=== PATIENT | female | born 1970 | race Two or more races ===

== ENCOUNTER 2024-02-22 11:49 | Outpatient (AMB) | payer OTHER, SELFPAY ==
--- NOTE | 2024-02-22 12:33 | MHC.OFFVIS ---
Vital Signs 02/22/24 12:34 Height 5 ft 2 in Weight 147 lb 4.301 oz BMI 26.9 BP 120/60 Blood Pressure Location Rt brachial Position Sitting Pulse 64 Pulse Oximetry (%) 98 Intake Visit Reasons: Polyarthralgia/? FM Intake Note: New patient, referred by [facility], presents today for evaluation of polyarthralgia. c/o generalized joint pain that began in Oct, 2023. Currently on Gabapentin 300 mg BID, unable to tolerate TID. 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 Castañeda 53 yoF here for evaluation of total body pain. The total body pain started 2 or 3 years ago with gradual onset and had worsening pain for a few months now. This caused her to called out from work frequently. --denies morning stiffness more than 5 minutes. --pain is stronger to upper back, neck --ibuprofen, Tylenol not help; got gabapentin which helped after a few weeks - titrated up to 300mg BID per day; but causes her to feel bloated. 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 --denies joint swelling, redness, or warm --denies generalized weakness to muscles --denies dry eyes, mouth, mouth sores, sun sensitivity --no pleuritis, pericarditis, uveiitis, sun sensitivity, --no headaches, eye pain -.tender points - trapezius, buttocks, trochanteric, lumbar --Neg, NICOLÁS, Lyme, UA, RF, ESR, CRP PFSH Medical History (Updated 02/22/24 @ 13:27 by EH Deluca-RACHEL) Swelling of left elbow joint Pain in joint involving multiple sites Myalgia Acute arthritis CAD (coronary artery disease) Hyperlipidemia, unspecified Vitamin D deficiency Major depressive disorder with single episode Anxiety HTN (hypertension) Stable angina Renal cyst, left Overweight Surgical History (Updated 02/15/24 @ 15:28 by PRITSEH Reyes) Hx of tubal ligation Hx of cholecystectomy Hx of section History of appendectomy Family History (Updated 02/22/24 @ 12:38 by PRITESH Reyes) Mother Arthritis Social History (Updated 02/22/24 @ 12:38 by PRITESH Reyes) Alcohol intake: current Alcohol intake frequency: holidays/special occasions only Patient Tobacco Use Status: Never used Tobacco Current occupational status: employed Current occupation: cleaning Review of Systems Const All systems reviewed & are unremarkable except as noted in HPI and below Physical Exam Vital Signs: Last Vital Signs Pulse 64 02/22/24 12:34 BP 120/60 02/22/24 12:34 Pulse Ox 98 02/22/24 12:34 BMI result Body Mass Index 26.9 Vital signs reviewed. Constitutional: Non-toxic appearing. No acute distress. Well-developed and well-nourished. HEENT: Normocephalic and atraumatic. External auditory canals without erythema or edema bilaterally. Dry mucous membranes. No pharyngeal erythema or exudates. Skin: Warm and dry. No rashes or lesions noted. Neck: Full and painless range of motion. No cervical lymphadenopathy. Cardio: Regular rate and rhythm. No murmurs, gallops, or rubs. No lower extremity edema. No JVD. Pulmonary: No respiratory distress. No accessory muscle usage. Gastrointestinal: Soft, nontender, and nondistended in all 4 quadrants. Normoactive bowel sounds in all 4 quadrants. Genitourinary: No CVA tenderness. Musculoskeletal: Normal range of motion in joints throughout the body. No deformity or other signs of injury. Neuro: Alert and oriented x 4. Cranial nerves 2-12 grossly intact. No focal deficits appreciated. Results Reviewed Results Reviewed: Laboratory Tests 02/22/24 13:58 WBC 7.0 RBC 4.40 Hgb 13.1 Hct 38.5 ESR 23 H Creatinine 0.81 AST 25 ALT 23 Total Creatine Kinase 131 C-Reactive Protein 0.16 IgG Total 1463 IgA Total 190 IgM 124 Cycl Citrul Peptide IgG <16 Assessment & Plan Assessment & Plan (1) Myalgia: Code(s): M79.10 - Myalgia, unspecified site Category: Medical (2) Pain in joint involving multiple sites: Code(s): M25.50 - Pain in unspecified joint Category: Medical Plan #Joint pain Multiple sites/myalgia: After initial review of history, physical examination and available diagnostics, I do not think the patient has a CTD or inflammatory process that underlies her symptoms. I think the patient has central sensitization syndrome (fibromyalgia) that is worsened with stress. On PE most of her tenderness is elicited at the neck and upper back and shoulders and upper arms. She is very sensitive to touch and does get relief from gabapentin 300mg BID (prescribed TID). She also takes Clonazepam, escitalopram, hydroxyzine and naproxen. Labs for We discussed the the nature of fibromyalgia and encouraged patient to work on stress management, continue to see a therapist, an engage in light activities that encouraged circulation, and provide benefits from movement to the joints and muscle. I did order some Rheum labs for further workup I spent 30 minutes reviewing history evaluating patient and documenting Follow-up in 2 months Orders: Orders Complete Blood Count Auto Diff 02/22/24 M79.10 - Myalgia, unspecified site, M25.50 - Pain in unspecified joint C Reactive Protein 02/22/24 M79.10 - Myalgia, unspecified site, M25.50 - Pain in unspecified joint Creatine Kinase Total 02/22/24 M79.10 - Myalgia, unspecified site, M25.50 - Pain in unspecified joint Aldolase 02/22/24 M79.10 - Myalgia, unspecified site, M25.50 - Pain in unspecified joint CT elbow LT wo IV con 02/22/24 M25.50 - Pain in unspecified joint, M25.422 - Effusion, left elbow Cyclic Citrullinated Peptide 02/22/24 M25.50 - Pain in unspecified joint, M25.422 - Effusion, left elbow Erythrocyte Sedimentation Rate 02/22/24 M79.10 - Myalgia, unspecified site, M25.50 - Pain in unspecified joint Comprehensive Met. Panel 02/22/24 M79.10 - Myalgia, unspecified site, M25.50 - Pain in unspecified joint Immunoglobulins,IgG IgA IgM 02/22/24 M79.10 - Myalgia, unspecified site, M25.50 - Pain in unspecified joint Immunofixation Pnl, Serum 02/22/24 M79.10 - Myalgia, unspecified site, M25.50 - Pain in unspecified joint Protein Electrophoresis, Serum 02/22/24 M79.10 - Myalgia, unspecified site, M25.50 - Pain in unspecified joint Sjogren's Antibodies 02/22/24 M79.10 - Myalgia, unspecified site, M25.50 - Pain in unspecified joint Coding Level of Care Code New Pt Level 4 (09297) Diagnoses Myalgia M79.10 Pain in joint involving multiple sites M25.50
[2024-02-22 12:34] VITALS: BP 120/60; PULSE 64; O2SAT 98; BMI 26.9
== END 2024-02-22 13:37 | disposition home or self-care (01) ==
PROVIDERS: PCP Internal Medicine; Visit Provider Nurse Practitioner Family
DX: M79.10 Myalgia, unspecified site (principal); M25.50 Pain in unspecified joint
CPT/HCPCS: 99204

== ENCOUNTER 2024-02-22 11:49 | Outpatient (REF) | payer OTHER, SELFPAY ==
[2024-02-22 13:59] LABS: MANUAL DIFF FLAG NO
[2024-02-22 14:55] LABS: Basophils Percent Auto 0.4 % (0-2); Eosinophils Absolute Auto 0.1 X10*3/uL (0.0-0.4); Hematocrit 38.5 % (37.0-47.0); Hemoglobin 13.1 g/dl (12.0-16.0); Imm Gran Abs Auto 0.02 X10*3/uL (0.00-0.03); Imm Gran Pct Auto 0.3 % (0.0-0.4); Lymphocytes Absolute Auto 2.9 X10*3/uL (1.2-4.9); Lymphocytes Percent Auto 40.7 % (20-40); Mean Corpuscular Hemoglobin 29.8 pg (27.0-33.0); Mean Corpuscular Volume 87.5 fL (80.0-98.0); Mean Platelet Volume 10.7 fL (9.4-12.3); Monocytes Absolute Auto 0.4 X10*3/uL (0.1-1.2); Monocytes Percent Auto 5.7 % (2-11); Neutrophils Absolute Auto 3.6 x10*3/uL (2.0-8.3); Neutrophils Percent Auto 50.9 % (45-73); Platelet Count 339 X10*3/uL (160-400); Red Cell Distribution Width 13.5 % (11.0-16.0)
[2024-02-22 15:35] LABS: Alanine Aminotransferase 23 U/L (0-31); Albumin Level 4.3 g/dL (3.5-5.0); Alkaline Phosphatase 100 U/L (39-117); Anion Gap 11 (12-20); Aspartate Amino Transferase 25 U/L (5-31); Bilirubin Total 0.3 mg/dL (0.0-1.0); Blood Urea Nitrogen 11 mg/dL (9-16); C Reactive Protein 0.16 mg/dL (< or = 0.50); Calcium 9.6 mg/dL (8.4-10.2); Carbon Dioxide 27 mmol/L (22-29); Chloride 108 mmol/L (96-108); Estimated Glomerular Filt Rate > 60; Glucose Random 81 mg/dL (60-115); Potassium 4.6 mmol/L (3.3-5.1); Sodium 141 mmol/L (135-145)
[2024-02-22 16:00] LABS: Erythrocyte Sedimentation Rate 23 MM/HR (0-20)
[2024-02-25 15:58] LABS: Cyclic Citrullinated Peptide <16 UNITS
[2024-02-25 16:18] LABS: Antibody to SS-A Antigen <1.0 NEG AI (<1.0 NEG); Antibody to SS-B Antigen <1.0 NEG AI (<1.0 NEG)
[2024-02-26 15:53] LABS: IgA 190 mg/dL (47-310); IgG 1463 mg/dL (600-1640); IgM 124 mg/dL (50-300)
[2024-02-26 17:04] LABS: Prot Elec - Albumin 4.4 g/dL (3.8-4.8); Prot Elec - Alpha1 0.3 g/dL (0.2-0.3); Prot Elec - Alpha2 0.7 g/dL (0.5-0.9); Prot Elec - Beta 1 0.5 g/dL (0.4-0.6); Prot Elec - Beta 2 0.4 g/dL (0.2-0.5); Prot Elec - Gamma 1.2 g/dL (0.8-1.7); Prot Elec - Total Protein 7.5 g/dL (6.1-8.1)
[2024-02-29 14:49] LABS: Aldolase 4.5 U/L (<=8.1)
== END 2024-02-22 11:50 | disposition home or self-care (01) ==
LOC: HO.LAB 11:49
PROVIDERS: PCP Internal Medicine; Visit Provider Nurse Practitioner Family
DX: M79.10 Myalgia, unspecified site (principal); M25.50 Pain in unspecified joint; M25.422 Effusion, left elbow
CPT/HCPCS: 36415; 80053; 82085; 82550; 82784; 84165; 85025; 85652; 86140; 86200; 86235; 86334; 99202